=== PATIENT | female | born 1970 | race Caucasian/White ===

== ENCOUNTER 2017-02-14 03:26 | Inpatient (IN) | payer MEDICAID ==
[~2017-02-14] VITALS: Ht 154.9 cm; Wt 61.0 kg
[~2017-02-14 03:26] MED LIST: ACET325T14 PO; ACET650S21 PO; ENOX60DI3 SQ; HYDR-3240 PO; ONDA4TAB13 SL; OXYC5CAP4 PO; OXYC5TAB3 PO; POLY17PO5 PO; Pantoprazole Sodium PO; SUCR1ORA2 PO; WARF5TAB7 PO
[2017-02-14] MEDS ORDERED: ONDANSETRON 2MG/ML, 2ML ONE (04:05)
[2017-02-14] MEDS ORDERED: PANTOPRAZOLE 40 MG IV ONE (04:05)
[2017-02-14] MEDS ORDERED: HYDROmorphone 1 MG/ML, 1ML ONE (04:05)
[2017-02-14] MEDS ORDERED: PANTOPRAZOLE 40 MG IV IVP ONE (04:30)
[2017-02-14] MEDS ORDERED: SODIUM CHLORIDE 0.9% 1,000ML IVBOLUS ONE (04:30)
[2017-02-14] MEDS ORDERED: SODIUM CHLORIDE FLUSH 10ML SYR IVF ONE (04:30)
[2017-02-14] MEDS ORDERED: HYDROmorphone 1 MG/ML, 1ML IVPush PRN (04:30)
[2017-02-14] MEDS ORDERED: ONDANSETRON 2MG/ML, 2ML IVPush ONE (04:30)
[2017-02-14 05:26] LABS: BLOOD UREA NITROGEN 4 mg/dL (7-18)
[2017-02-14 05:30] LABS: ASPARTATE AMINO TRANSFERASE 56 U/L (15-37)
[2017-02-14] MEDS ORDERED: PROMETHAZINE 25 MG/ML, 1ML ONE (05:42)
[2017-02-14] MEDS ORDERED: PROMETHAZINE 25 MG/ML, 1ML IM ONE (06:00)
[2017-02-14] MEDS ORDERED: OMNIPAQUE 350 MG/ML, 100ML BOTTLE ONE (06:01)
[2017-02-14] MEDS ORDERED: SODIUM CHLORIDE 0.9%, 500ML IVBOLUS ONE (07:30)
[2017-02-14] MEDS ORDERED: LEVO750T26 PO (07:38)
[2017-02-14] MEDS ORDERED: NYST1000 PO (07:38)
[2017-02-14 08:38] VITALS: BP 139/81
[2017-02-14 08:50] VITALS: BP 138/81
[2017-02-14] MEDS ORDERED: CEFTRIAXONE 1,000 MG in SODIUM CHLORIDE 0.9% 50 ML IVPB ONE (09:00)
[2017-02-14] MEDS ORDERED: BISACODYL 10 MG SUPP PR PRN (10:00)
[2017-02-14] MEDS ORDERED: PROMETHAZINE 25 MG/ML, 1ML IM PRN (10:00)
[2017-02-14] MEDS ORDERED: PANTOPRAZOLE 40 MG IV IVPush SCH (10:00)
[2017-02-14] MEDS ORDERED: DOCUSATE 100 MG CAPSULE PO PRN (10:00)
[2017-02-14] MEDS ORDERED: TRAZODONE 50MG TABLET PO PRN (10:00)
[2017-02-14] MEDS: NYSTATIN 500,000 UNITS/5 ML UDC PO SCH ×3 (10:57→20:02)
[2017-02-14] MEDS: ONDANSETRON 2MG/ML, 2ML IVPush PRN (10:57)
[2017-02-14 13:54] VITALS: BP 124/78
[2017-02-14] MEDS ORDERED: PHYTONADIONE 10 MG/ML, 1ML SQ ONE (14:30)
[2017-02-14] MEDS: morphine SULFATE 10 MG/ML, 1ML IVPush PRN ×2 (16:20→21:22)
[2017-02-14] MEDS: PANTOPRAZOLE 40 MG IV IVPush SCH (20:01)
[2017-02-14 20:22] VITALS: BP 122/76
[2017-02-15 01:33] VITALS: BP 133/80
[2017-02-15] MEDS ORDERED: MORPHINE SULFATE 4 MG/ML, 1ML ONE ×2 (01:34→19:43)
[2017-02-15] MEDS: morphine SULFATE 10 MG/ML, 1ML IVPush PRN ×2 (01:40→19:47)
[2017-02-15] MEDS: NYSTATIN 500,000 UNITS/5 ML UDC PO SCH ×4 (02:00→19:47)
[2017-02-15 04:45] LABS: BLOOD UREA NITROGEN 4 mg/dL (7-18)
[2017-02-15 07:27] LABS: HCG UR OBC PASS
[2017-02-15] MEDS ORDERED: FENTANYL PF 250 MCG/5ML ONE (07:29)
[2017-02-15] MEDS ORDERED: MIDAZOLAM 1 MG/ML, 2ML ONE (07:29)
[2017-02-15] MEDS ORDERED: ONDANSETRON 2MG/ML, 2ML ONE (07:50)
[2017-02-15] MEDS ORDERED: PROPOFOL 10 MG/ML, 20ML ONE (07:50)
[2017-02-15] MEDS ORDERED: MIDAZOLAM 1 MG/ML, 2ML IV PRN (08:00)
[2017-02-15] MEDS ORDERED: ONDANSETRON 2MG/ML, 2ML IVPush PRN (08:00)
[2017-02-15] MEDS ORDERED: OXYcodone 5 MG/5 ML ORAL.SOL UDC PO PRN (08:00)
[2017-02-15] MEDS ORDERED: ALBUTEROL SULFATE 2.5 MG/3 ML NPPB PRN (08:00)
[2017-02-15] MEDS ORDERED: LABETALOL 5MG/ML, 20ML IV PRN (08:00)
[2017-02-15] MEDS ORDERED: FENTANYL PF 100 MCG/2ML IV PRN (08:00)
[2017-02-15] MEDS ORDERED: PROMETHAZINE 25 MG/ML, 1ML IV PRN (08:00)
[2017-02-15] MEDS ORDERED: EPHEDRINE 50 MG/ML, 1ML IVPush PRN (08:00)
[2017-02-15] MEDS ORDERED: hydrALAzine 20 MG/ML, 1ML IV PRN (08:00)
[2017-02-15] MEDS ORDERED: METOCLOPRAMIDE 5 MG/ML, 2ML IV PRN (08:00)
[2017-02-15] MEDS ORDERED: MEPERIDINE/PF 25MG/0.5ML IVPush PRN (08:00)
[2017-02-15] MEDS ORDERED: ACETAMINOPHEN 325 MG TABLET PO PRN (08:00)
[2017-02-15] MEDS ORDERED: METOPROLOL 1 MG/ML, 5ML IV PRN (08:00)
[2017-02-15] MEDS ORDERED: HYDROmorphone 1 MG/ML, 1ML IV PRN (08:00)
[2017-02-15] MEDS: PANTOPRAZOLE 40 MG IV IVPush SCH (08:09)
[2017-02-15 09:12] VITALS: BP 120/75
[2017-02-15] MEDS: OXYcodone IR 5MG TABLET PO PRN (12:07)
[2017-02-15] MEDS: SUCRALFATE 1 GM/10 ML UDC PO SCH ×3 (12:09→21:48)
[2017-02-15 13:56] VITALS: BP 103/71
[2017-02-15] MEDS: OMEPRAZOLE 20 MG CAPSULE.DR PO SCH (16:02)
[2017-02-15] MEDS: ONDANSETRON 2MG/ML, 2ML IVPush PRN (17:43)
[2017-02-15 20:44] VITALS: BP 119/75
[2017-02-16] MEDS: ONDANSETRON 2MG/ML, 2ML IVPush PRN ×2 (01:12→09:26)
[2017-02-16] MEDS: NYSTATIN 500,000 UNITS/5 ML UDC PO SCH ×4 (01:12→20:55)
[2017-02-16] MEDS ORDERED: MORPHINE SULFATE 4 MG/ML, 1ML ONE ×3 (02:00→20:51)
[2017-02-16] MEDS: morphine SULFATE 10 MG/ML, 1ML IVPush PRN ×5 (02:03→20:55)
[2017-02-16 02:15] VITALS: BP 120/74
[2017-02-16 05:03] LABS: BLOOD UREA NITROGEN 7 mg/dL (7-18)
[2017-02-16 05:06] LABS: ASPARTATE AMINO TRANSFERASE 62 U/L (15-37)
[2017-02-16] MEDS: OMEPRAZOLE 20 MG CAPSULE.DR PO SCH ×2 (09:26→16:06)
[2017-02-16] MEDS: SUCRALFATE 1 GM/10 ML UDC PO SCH ×4 (09:26→23:14)
[2017-02-16 09:34] VITALS: BP 105/68
[2017-02-16 13:19] VITALS: BP 106/69
[2017-02-16] MEDS: ONDANSETRON ODT 4 MG PO PRN ×2 (18:10→23:14)
[2017-02-16 20:07] VITALS: BP 107/70
[2017-02-17 01:30] VITALS: BP 104/66
[2017-02-17] MEDS ORDERED: MORPHINE SULFATE 4 MG/ML, 1ML ONE ×2 (01:52→04:55)
[2017-02-17] MEDS: morphine SULFATE 10 MG/ML, 1ML IVPush PRN ×2 (01:55→05:00)
[2017-02-17] MEDS: NYSTATIN 500,000 UNITS/5 ML UDC PO SCH ×3 (01:55→13:40)
[2017-02-17] MEDS: ONDANSETRON ODT 4 MG PO PRN ×2 (05:00→13:40)
[2017-02-17 05:11] LABS: BLOOD UREA NITROGEN 8 mg/dL (7-18)
[2017-02-17 07:42] VITALS: BP 99/64
[2017-02-17] MEDS: SUCRALFATE 1 GM/10 ML UDC PO SCH ×2 (07:51→13:40)
[2017-02-17] MEDS: OMEPRAZOLE 20 MG CAPSULE.DR PO SCH (07:51)
[2017-02-17] MEDS ORDERED: OXYC5TAB3 PO (10:49)
[2017-02-17] MEDS ORDERED: OMEP-110 PO (10:49)
[2017-02-17] MEDS ORDERED: SUCR1ORA2 PO (10:49)
[2017-02-17] MEDS: OXYcodone IR 5MG TABLET PO PRN (13:40)
== END 2017-02-17 14:55 | disposition home or self-care (01) | DRG 375 ==
LOC: ED 03:48 → EDIP 07:33 → 3NW 08:25
PROVIDERS: ADMIT Family Medicine; ATTEND Family Medicine
PROC: 0DB98ZX Excision of Duodenum, Via Natural or Artificial Opening Endoscopic, Diagnostic (ICD-10-PCS; principal; 2017-02-15 07:30)
DX: C17.0 Malignant neoplasm of duodenum (principal); C78.6 Secondary malignant neoplasm of retroperitoneum and peritoneum; E44.0 Moderate protein-calorie malnutrition; D68.9 Coagulation defect, unspecified; C79.89 Secondary malignant neoplasm of other specified sites; D62 Acute posthemorrhagic anemia; C78.7 Secondary malignant neoplasm of liver and intrahepatic bile duct; K26.9 Duodenal ulcer, unspecified as acute or chronic, without hemorrhage or perforation; Z86.718 Personal history of other venous thrombosis and embolism; Z88.0 Allergy status to penicillin; Z68.25 Body mass index [BMI] 25.0-25.9, adult; Z87.11 Personal history of peptic ulcer disease; C76.8 Malignant neoplasm of other specified ill-defined sites
CPT/HCPCS: 36415; 71010; 74177; 80048; 80053; 81003; 81025; 83605; 83690; 84145; 85025; 85610; 85730; 87040; 88305; 96361; 96372; 96374; 96375; J0696; J1170; J2250; J2405; J2550; J2704; J3010; J3430; Q0162; Q9967; C9113; J2270; J7030

== ENCOUNTER 2017-04-19 12:41 | Inpatient (IN) | payer MEDICAID ==
[~2017-04-19] VITALS: Ht 154.9 cm; Wt 57.1 kg
[~2017-04-19 12:41] MED LIST changes: +FENT1PAT75 TD; +LEVO500T33 PO; +LEVO750T26 PO; +NYST1000 PO; +OMEP-110 PO; +OXYC10TA6 PO; +PANT20TA2 PO; +PROM25TA10 PO
[2017-04-19] MEDS ORDERED: SODIUM CHLORIDE 0.9% 1,000ML IVBOLUS ONE (13:00)
[2017-04-19] MEDS ORDERED: SODIUM CHLORIDE FLUSH 10ML SYR IVF ONE (13:00)
[2017-04-19 13:51] LABS: ASPARTATE AMINO TRANSFERASE 120 U/L (15-37); BLOOD UREA NITROGEN 7 mg/dL (7-18)
[2017-04-19 14:08] LABS: DIFF TOTAL CELLS COUNTED 100 CELL DIFF
[2017-04-19 14:10] LABS: ANISOCYTOSIS 2+; VERIFY COUNTS? YES
[2017-04-19 14:11] LABS: POLYCHROMASIA 1+; TARGET CELLS 1+
[2017-04-19 14:12] LABS: HYPOCHROMIA 1+
[2017-04-19] MEDS ORDERED: POTASSIUM CHLORIDE 40 MEQ in SODIUM CHLORIDE 0.9% 500 ML IV ONE (14:30)
[2017-04-19] MEDS ORDERED: POTASSIUM CHLORIDE 40 MEQ in D5%-0.9% NACL 1,000 ML IV SCH (15:00)
[2017-04-19] MEDS ORDERED: POTASSIUM CHLORIDE 20 MEQ TAB.ER.PRT PO ONE (15:00)
[2017-04-19] MEDS ORDERED: MORPHINE SULFATE 4 MG/ML, 1ML IVPush ONE (15:30)
[2017-04-19] MEDS ORDERED: MORPHINE SULFATE 4 MG/ML, 1ML ONE (15:42)
[2017-04-19] MEDS ORDERED: POTASSIUM CHLORIDE 20 MEQ TAB.ER.PRT ONE (15:42)
[2017-04-19 18:33] VITALS: BP 106/69
[2017-04-19] MEDS ORDERED: FENTANYL 25 MCG PATCH TD SCH (19:00)
[2017-04-19] MEDS: NS + 40MEQ KCL 1,000 ML IV SCH (20:07)
[2017-04-19] MEDS: PANTOPRAZOLE 40 MG IV IVPush SCH (20:07)
[2017-04-19] MEDS: NYSTATIN 500,000 UNITS/5 ML UDC PO SCH (20:07)
[2017-04-19] MEDS: ENOXAPARIN 40 MG/0.4 ML SQ SCH (20:07)
[2017-04-19 21:16] VITALS: BP 101/67
[2017-04-19] MEDS: OXYcodone IR 5MG TABLET PO PRN (21:43)
[2017-04-20] MEDS: PROMETHAZINE 25 MG/ML, 1ML IM PRN (00:56)
[2017-04-20] MEDS: MORPHINE SULFATE 4 MG/ML, 1ML IVPush PRN ×5 (00:57→22:05)
[2017-04-20 01:00] VITALS: BP 100/64
[2017-04-20] MEDS: NS + 40MEQ KCL 1,000 ML IV SCH ×2 (06:01→17:05)
[2017-04-20] MEDS: NYSTATIN 500,000 UNITS/5 ML UDC PO SCH ×4 (06:01→20:57)
[2017-04-20 06:23] LABS: ASPARTATE AMINO TRANSFERASE 111 U/L (15-37); BLOOD UREA NITROGEN 6 mg/dL (7-18)
[2017-04-20 06:25] LABS: DIFF TOTAL CELLS COUNTED 100 CELL DIFF
[2017-04-20 06:31] LABS: ANISOCYTOSIS 1+; HYPOCHROMIA 1+; POIKILOCYTOSIS 1+; TARGET CELLS 1+; VERIFY COUNTS? YES
[2017-04-20 07:16] VITALS: BP 96/61
[2017-04-20] MEDS: PANTOPRAZOLE 40 MG IV IVPush SCH ×2 (07:51→20:57)
[2017-04-20] MEDS: ONDANSETRON ODT 4 MG PO PRN ×2 (08:04→22:06)
[2017-04-20] MEDS ORDERED: OMNIPAQUE 350 MG/ML, 100ML BOTTLE ONE (10:35)
[2017-04-20 12:04] VITALS: BP 94/60
[2017-04-20] MEDS ORDERED: LIDOCAINE 1%, 20ML ONE (17:18)
[2017-04-20 19:47] VITALS: BP 110/71
[2017-04-20] MEDS: ENOXAPARIN 40 MG/0.4 ML SQ SCH (20:57)
[2017-04-20] MEDS: OXYcodone IR 5MG TABLET PO PRN (20:57)
[2017-04-21] MEDS: PROMETHAZINE 25 MG/ML, 1ML IM PRN (02:42)
[2017-04-21] MEDS: MORPHINE SULFATE 4 MG/ML, 1ML IVPush PRN ×2 (02:43→08:42)
[2017-04-21] MEDS: NS + 40MEQ KCL 1,000 ML IV SCH (03:16)
[2017-04-21 03:22] VITALS: BP 95/62
[2017-04-21] MEDS: NYSTATIN 500,000 UNITS/5 ML UDC PO SCH ×2 (05:28→12:11)
[2017-04-21 06:24] LABS: BLOOD UREA NITROGEN 5 mg/dL (7-18)
[2017-04-21 06:29] LABS: ASPARTATE AMINO TRANSFERASE 99 U/L (15-37)
[2017-04-21 08:26] VITALS: BP 99/67
[2017-04-21] MEDS: PANTOPRAZOLE 40 MG IV IVPush SCH (08:42)
[2017-04-21] MEDS ORDERED: FENT1PAT75 TD (08:54)
[2017-04-22] MEDS ORDERED: FENTANYL REMOVE PATCH NOTE XX SCH (19:00)
== END 2017-04-21 15:10 | disposition home or self-care (01) | DRG 435 ==
LOC: ED 15:26 → EDIP 15:27 → ED 15:44 → 4WST 17:48
PROVIDERS: ADMIT Internal Medicine; ATTEND Internal Medicine
PROC: 0W9G3ZZ Drainage of Peritoneal Cavity, Percutaneous Approach (ICD-10-PCS; principal; 2017-04-20)
DX: C22.1 Intrahepatic bile duct carcinoma (principal); K83.1 Obstruction of bile duct; E43 Unspecified severe protein-calorie malnutrition; R18.0 Malignant ascites; K92.0 Hematemesis; E87.6 Hypokalemia; E86.0 Dehydration; R62.7 Adult failure to thrive; D63.8 Anemia in other chronic diseases classified elsewhere; M79.652 Pain in left thigh; Z51.5 Encounter for palliative care; Z90.710 Acquired absence of both cervix and uterus; Z86.718 Personal history of other venous thrombosis and embolism; Z98.51 Tubal ligation status; Z88.0 Allergy status to penicillin; Z79.899 Other long term (current) drug therapy; Z68.23 Body mass index [BMI] 23.0-23.9, adult; Z92.3 Personal history of irradiation; Z92.21 Personal history of antineoplastic chemotherapy
CPT/HCPCS: 36415; 47531; 49083; 74022; 74177; 76000; 80053; 81001; 83690; 83735; 84100; 85025; 85610; 93005; 93970; 96361; 96374; 96375; J1650; J2550; J3480; J3490; Q0162; Q9967; C9113; J7030; J7040